=== PATIENT | male | born 1965 | race Caucasian/White ===

== ENCOUNTER 2018-03-24 21:02 | Emergency (ER) | payer OTHER ==
[2018-03-24 22:34] VITALS: O2SAT 99
[2018-03-24] MEDS ORDERED: Tdap Vaccine 0.5 ml Vial (10-64 yrs) IM ONE ×2 (22:36→22:45)
--- NOTE | 2018-03-24 22:39 | C.PDOC ---
History Of Present Illness 52 y/o male with no sig pmh presents to ED almost 20 hrs after a fall down one flight of steps in his house. pt sts he slipped on something. pt sts unclear loc, helped up by his . pt c/o pain to left ribs with sob, swelling and pain to left hand, madhavi 4th finger and left wrist. pt c/o neck pain and headache. +pain to left side abdomen. last tdap unk. <Tanya Regan - Last Filed: 03/24/18 23:09> - HPI History Per: Patient History/Exam Limitations: no limitations Onset/Duration Of Symptoms: Hrs (21) Injury Occurred (Timing): Hours Ago: (21) Location Of Injury: Right: Back, Left: Back, Chest, Wrist Pain Scale Rating Of: 8 Associated Symptoms: Dizziness - Fall Fall:Prior To Injury: Tripped (down one flight stairs) <Tanya Regan - Last Filed: 03/24/18 23:09> <Oswald Sood E - Last Filed: 03/25/18 00:14> - HPI Time Seen by Provider: 03/24/18 22:30 Chief Complaint (Nursing): Finger,Hand,&Wrist Past Medical History Reviewed: Historical Data, Nursing Documentation, Vital Signs Vital Signs: Last Vital Signs Temp 98.7 F 03/24/18 21:10 Pulse 99 H 03/24/18 21:10 Resp 20 03/24/18 21:10 BP 142/89 03/24/18 21:10 Pulse Ox 99 03/24/18 21:10 - Medical History PMH: No Chronic Diseases Family History: States: Unknown Family Hx - Social History Hx Tobacco Use: Yes Hx Alcohol Use: No Hx Substance Use: No - Immunization History Hx Tetanus Toxoid Vaccination: No Hx Influenza Vaccination: No Hx Pneumococcal Vaccination: No <Tanya Regan - Last Filed: 03/24/18 23:09> Vital Signs: Last Vital Signs Temp 98.7 F 03/24/18 21:10 Pulse 99 H 03/24/18 21:10 Resp 20 03/24/18 21:10 BP 142/89 03/24/18 21:10 Pulse Ox 99 03/24/18 23:09 <Oswald Sood E - Last Filed: 03/25/18 00:14> Review Of Systems Constitutional: Negative for: Fever, Chills Eyes: Negative for: Pain, Vision Change ENT: Negative for: Ear Discharge Cardiovascular: Positive for: Chest Pain (left side) Respiratory: Positive for: Shortness of Breath, Pleuritic Pain. Negative for: Wheezing Gastrointestinal: Positive for: Abdominal Pain. Negative for: Nausea, Vomiting Musculoskeletal: Positive for: Neck Pain, Arm Pain, Back Pain, Hand Pain Skin: Positive for: Bruising (left axilla, bilateral back) Neurological: Negative for: Weakness, Numbness <Tanya Regan - Last Filed: 03/24/18 23:09> Physical Exam - Physical Exam Appears: Non-toxic, In Acute Distress (painful) Skin: Warm, Dry, Ecchymosis (left axillary region and bilateral mid back) Head: Atraumatic, Normacephalic Eye(s): bilateral: Normal Inspection, PERRL, EOMI Ear(s): Bilateral: Normal (no hemotympanum) Neck: Midline Cervical Tenderness (mild ), Paracervical Tenderness (mild lower cervical spine) Chest: Symmetrical, No Deformity, Tenderness (marked tenderness to left side axilla with wide area of ecchymosis, no step off or crepitus noted) Cardiovascular: Rhythm Regular, No Murmur Respiratory: No Decreased Breath Sounds, Rhonchi (left base), No Wheezing Gastrointestinal/Abdominal: Bowel Sounds, Soft, Tenderness (left lower abdomen and epigastric area ) Back: No CVA Tenderness, No Vertebral Tenderness, Other (few areas ecchymosis ) Extremity: Normal ROM, Tenderness (mild to left knee with abrasion. no swelling), Capillary Refill (less than 2 seconds. ), Swelling (left wrist, left hand and fingers with tenderness to palpation) Pulses: Left Radial: Normal, Right Radial: Normal, Left Dorsalis Pedis: Normal, Right Dorsalis Pedis: Normal Neurological/Psych: Oriented x3, Normal Speech, Normal Cognition, Normal Cranial Nerves, Normal Motor, Normal Sensation <Tanya Regan - Last Filed: 03/24/18 23:09> ED Course And Treatment ECG: Interpreted By Me, Viewed By Me ECG Rhythm: Sinus Rhythm ECG Interpretation: Normal Rate From EC O2 Sat by Pulse Oximetry: 99 (Room air) Pulse Ox Interpretation: Normal <Tanya Regan Last Filed: 03/24/18 23:09> - Laboratory Results Result Diagrams: 03/24/18 22:58 03/24/18 22:58 Progress Note: 0000: signed over @ 2300, pt fell down a few stairs approx 24 hrs ago, presents with primarily L hand and L lateral rib discomforts. Signed over to f/u plain and CT films. pt seen and examined, + L lateral rib contusion, no deformity. head/neck normal. L hand/wrist with mild STS, no deformities. CT head/C-spine/CAP, L hand and Wrist films all neg. ice/NSAIDS educated. <Oswald Sood - Last Filed: 03/25/18 00:14> Procedure: Blank - Time Time Performed: 22:00 (ring removal left 4th finger with ring cutter) - Time Out Time Out: Side verified, Site verified - Consent obtained: Consent obtained: Verbal - Performed by: Performed by:: Mid-level provider - Indications Indications(s):: swollen 4th left finger, unable to remove ring - Contraindications: Contraindications:: None - Location Location: Left Finger:: Ring - Result Result: Successful - Post-Procedure Post-procedure:: Neurovascular status nml - Patient Tolerated Procedure Patient Tolerated Procedure:: Well <Tanya Regan - Last Filed: 03/24/18 23:09> Medical Decision Making Medical Decision Makin pt s/p fall down one flight steps yesterday at midnight with multiple contusions, bruises. pain to ribs, chest, head, neck, abdomen, left hand and wrist. ct of head, cspine, chest, andomen andn pelvis ordered. xrays left hand and wrist ordered. tdap updated. labs ordered. ekg ordered. Dr Sood will f/u all imaging studies, xrays and labs and re-eval pt for disposition. <Tanya Regan - Last Filed: 03/24/18 23:09> Medical Decision Making: fall, contusions, no fx's, no internal organ damage. <Oswald Sood - Last Filed: 03/25/18 00:14> Disposition <Tanya Regan - Last Filed: 03/24/18 23:09> Doctor Will See Patient In The: Office Counseled Patient/Family Regarding: Studies Performed, Diagnosis - Disposition Disposition Time: 00:14 <Oswald Sood - Last Filed: 03/25/18 00:14> - Disposition Disposition: HOME/ ROUTINE Condition: GOOD Forms: [facility] (Romanian) - Clinical Impression Clinical Impression: Fall (on) (from) other stairs and steps, sequela Critical Care Time
[2018-03-24 23:07] LABS: BASO # 0.1 K/uL (0.0-0.2); BASO % 0.9 % (0.0-2.0); EOS # 0.4 K/uL (0.0-0.7); EOS % 3.2 % (0.0-4.0); LYMPH # 3.2 K/uL (1.0-4.3); LYMPH % 25.4 % (20.0-40.0); MEAN CELL VOLUME 87.6 fL (80.0-94.0); MEAN CORPUSCULAR HEMOGLOBIN 29.1 pg (27.0-31.0); MEAN CORPUSCULAR HGB CONC 33.2 g/dL (33.0-37.0); MEAN PLATELET VOLUME 8.8 fL (7.2-11.7); MONO # 0.9 K/uL (0.0-0.8); MONO % 6.9 % (0.0-10.0); NEUT % 63.6 % (50.0-75.0); NRBC % 0.1 % (0.0-2.0); RBC 5.16 Mil/uL (4.40-5.90); RED CELL DISTRIBUTION WIDTH 13.5 % (11.5-14.5); URINE BILIRUBIN NEGATIVE (NEGATIVE); URINE BLOOD NEGATIVE (NEGATIVE); URINE CLARITY Clear (Clear); URINE COLOR Yellow (YELLOW); URINE GLUCOSE (UA) NORMAL (Normal); URINE LEUKOCYTE ESTERASE NEG Leu/uL (Negative); URINE PROTEIN NEGATIVE (NEGATIVE); WHITE BLOOD COUNT 12.6 K/uL (4.8-10.8)
[2018-03-24 23:13] LABS: BLOOD UREA NITROGEN 16 mg/dL (9-20); CALCIUM 9.7 mg/dl (8.6-10.4); GFR NON-AFRICAN AMERICAN > 60
[2018-03-24 23:16] LABS: PROTHROMBIN TIME 10.9 SECONDS (9.7-12.2)
[2018-03-24 23:18] LABS: ALB/GLOB RATIO 1.1 (1.0-2.1); ALBUMIN 4.4 g/dL (3.5-5.0); ALT/SGPT 33 U/L (21-72); AST/SGOT 38 U/L (17-59)
[2018-03-25 00:23] VITALS: BP 140/90; PULSE 100; RESP 18; TEMP 98
--- NOTE | 2018-03-25 07:23 | CT ---
Date of service: 03/24/2018 PROCEDURE: CT HEAD WITHOUT CONTRAST. HISTORY: Injury. Persistent headache. COMPARISON: None available. TECHNIQUE: Axial computed tomography images were obtained through the head/brain without intravenous contrast. Radiation dose: Total exam DLP = 1093 mGy-cm. This CT exam was performed using one or more of the following dose reduction techniques: Automated exposure control, adjustment of the mA and/or kV according to patient size, and/or use of iterative reconstruction technique. FINDINGS: HEMORRHAGE: No intracranial hemorrhage. BRAIN: No mass effect or edema. Scattered focal lucencies in the subcortical and periventricular white matter suggestive for chronic microvascular ischemic change. . VENTRICLES: Unremarkable. No hydrocephalus. CALVARIUM: Unremarkable. PARANASAL SINUSES: Dense mucosal opacification of the ethmoid air cells. Mucosal thickening of the bilateral maxillary sinuses, sphenoid sinus, and frontal sinus. Partial opacification of the right mastoid air cells. MASTOID AIR CELLS: Partial opacification of the right mastoid air cells. OTHER FINDINGS: Mild soft tissue swelling overlying the right pre frontal cortex and right periorbital regions. IMPRESSION: No acute intracranial abnormality. Soft tissue swelling overlying the right pre frontal cortex and right periorbital regions. Sinus mucosal disease. If symptoms persists, consider correlation with MRI. These findings were preliminarily reported by Dr. Apolinar Nazario from [facility] rad at 11:59 p.m. on 03/24/2018.
--- NOTE | 2018-03-25 08:49 | RAD ---
Date of service: 03/24/2018 PROCEDURE: Left Wrist Radiographs. HISTORY: FOOSH distal radius pain and swelling COMPARISON: None. FINDINGS: BONES: Bone alignment and mineralization are normal. There is no acute displaced fracture or bone destruction. JOINTS: Normal. No dislocation. SOFT TISSUES: Normal. OTHER FINDINGS: None. IMPRESSION: No acute fracture or dislocation.
--- NOTE | 2018-03-25 08:50 | RAD ---
PROCEDURE: Left Hand Radiographs. HISTORY: fall down steps, swelling hand 4th finger COMPARISON: None. FINDINGS: BONES: Bone alignment and mineralization are normal. There is no acute displaced fracture or bone destruction. JOINTS: Normal. No osteoarthritic changes. SOFT TISSUES: Normal. OTHER FINDINGS: None. IMPRESSION: No acute fracture or dislocation.
--- NOTE | 2018-03-25 09:32 | CT ---
Date of service: 03/24/2018 PROCEDURE: CT Cervical Spine without contrast HISTORY: fall down 1 flight stairs, +midline tenderness COMPARISON: None available. TECHNIQUE: Axial computed tomography images were obtained of the cervical spine without the use of intravenous contrast. Coronal and sagittal reformatted images were created and reviewed. Radiation dose: Total exam DLP = 578.98 mGy-cm. This CT exam was performed using one or more of the following dose reduction techniques: Automated exposure control, adjustment of the mA and/or kV according to patient size, and/or use of iterative reconstruction technique. FINDINGS: VERTEBRAE: There is straightening of the cervical spine with loss of normal cervical lordosis. Vertebral alignment is normal. Vertebral height is maintained. There is mild diffuse bone demineralization. There is no acute fracture or spondylolisthesis. DISCS/SPINAL CANAL/NEURAL FORAMINA: There is multilevel degenerative disc disease due to combination of disc osteophyte complexes, uncovertebral joint hypertrophy and multilevel facet arthropathy, worse at C5-6 with moderate right and severe left neural foraminal narrowing and mild spinal canal stenosis. PARASPINAL SOFT TISSUES: Unremarkable. OTHER FINDINGS: Mild paraseptal emphysema in the lung apices. No apical pneumothorax IMPRESSION: No acute fracture or traumatic anterior listhesis. Straightening of the cervical spine may be positional or related to muscle spasm. A preliminary report was provided by [facility].
--- NOTE | 2018-03-25 12:48 | CT ---
Date of service: 03/24/2018 PROCEDURE: CT Chest, Abdomen and Pelvis without intravenous contrast HISTORY: Status post fall down steps,pain ecchymosis left ribs COMPARISON: None available. TECHNIQUE: Radiation dose: Total exam DLP = 858.39 mGy-cm. This CT exam was performed using one or more of the following dose reduction techniques: Automated exposure control, adjustment of the mA and/or kV according to patient size, and/or use of iterative reconstruction technique.. However the expected FINDINGS: CT CHEST WITHOUT CONTRAST: LUNGS: Mild ground-glass opacity seen in the posterior upper lobes as well as the lower lobes. Mild posterior lower lung field passive type atelectasis. Some minor scarring changes also felt to be present in the left lingular region and middle lobes... There is a 6 mm nodule seen in the anterior superior aspect right lower lobe near the major fissure (axial image number [id number]). There also appears to be some mild emphysematous changes upper lobe predominance. MEDIASTINUM: Heart size is mildly enlarged. No significant pericardial effusion. The ascending thoracic aorta measures approximately 3.4 cm and descending thoracic aorta measures approximately 2.65 cm. Pulmonary trunk measures 2.3 cm. Few small nonspecific mediastinal lymph nodes are present. Evaluation for hilar adenopathy limited due to lack circulating intravenous contrast material. There is a small hiatal hernia. LYMPH NODES: As above. PLEURA: No effusion or evidence of pneumothorax. BONES: Minor multilevel degenerative spondylosis of the thoracic spine. No evidence of acute compression fracture nor retropulsed fragments.. No definitive evidence of acute of rib fractures are identified. OTHER FINDINGS: None. CT ABDOMEN AND PELVIS: LIVER: Liver exhibits relatively normal size and attenuation pattern. No hepatic mass collection or calcification. Liver appears intact GALLBLADDER AND BILE DUCTS: Gallbladder is physiologically distended. No evidence of intraluminal gallbladder calculi. PANCREAS: The pancreas is slightly atrophic and fatty replaced. No pancreatic masses or collections. SPLEEN: Spleen appears intact. There is a tiny calcific density along the capsular surface lateral aspect of the splenic parenchyma possibly extrinsic to the splenic parenchyma itself.. ADRENALS: The left adrenal gland slightly nodular in appearance. KIDNEYS AND URETERS: Kidneys demonstrate relatively symmetric size. No evidence of nephrolithiasis or hydronephrosis. No renal masses or collections. No evidence of a subcapsular or parenchymal hemorrhages or lacerations. VASCULATURE: Unremarkable. No aortic aneurysm. BOWEL: Evaluation of the bowel is somewhat limited due to the lack of oral contrast. Stomach is incompletely distended which presumably part accounts for thick-walled appearance. Visualized loops of small bowel exhibit normal contour and caliber. No evidence of acute mechanical small bowel obstruction. APPENDIX: Normal appendix best seen on coronal image number [id number]. PERITONEUM: Unremarkable. No free fluid. No free air. There is a small fat containing umbilical hernia. LYMPH NODES: Unremarkable. No enlarged lymph nodes. BLADDER: Urinary bladder is incompletely distended which in part accounts for thick-walled appearance. Muscular hypertrophy presumably contributes. Correlation with urinalysis recommended. REPRODUCTIVE: Unremarkable. BONES: There is a small nonspecific lucency within the left iliac bone of uncertain etiology. There is a history of primary carcinoma this patient, consider follow-up bone scan to assess for metastatic disease OTHER FINDINGS: None. IMPRESSION: No evidence of acute intra thoracic or intra abdominal posttraumatic sequela. Small 6 mm nodular density right lower lobe of uncertain etiology. Followup the CT scan in 3 months recommended to assess stability. There is a small nonspecific lucency within the left iliac bone of uncertain etiology. There is a history of primary carcinoma this patient consider follow-up bone scan to exclude metastasis. Mild ground-glass opacity seen in the lower and to a lesser degree upper lobes.
--- NOTE | 2018-03-28 11:03 | CARD ---
APPROVED REPORT Date of service: 03/24/2018 EKG Measurement Heart [id number] <Conclusion> Normal sinus rhythm Minimal voltage criteria for LVH, may be normal variant Borderline ECG
== END 2018-03-25 00:23 | disposition home or self-care (01) ==
LOC: C.ER 21:02
DX: S20.212S Contusion of left front wall of thorax, sequela (principal); S63.502S Unspecified sprain of left wrist, sequela; S09.90XS Unspecified injury of head, sequela; S80.212S Abrasion, left knee, sequela; W10.9XXS Fall (on) (from) unspecified stairs and steps, sequela; M79.89 Other specified soft tissue disorders
CPT/HCPCS: 70450; 71250; 72125; 73110; 73130; 74176; 80053; 81001; 85025; 85610; 85730; 90471; 90715; 93005; 96374; 99285; J2270